=== PATIENT | male | born 1995 | race Caucasian/White ===

== ENCOUNTER 2018-04-05 19:16 | Emergency (ER) | payer OTHER ==
--- NOTE | 2018-04-05 20:25 | EDM.PDOC ---
ED HPI GENERAL MEDICAL PROBLEM - General Chief Complaint: ENT Problem Stated Complaint: SORE THROAT, RIGHT EAR PAIN Time Seen by Provider: 04/05/18 20:05 Source of Information: Reports: Patient History Limitations: Reports: No Limitations - History of Present Illness INITIAL COMMENTS - FREE TEXT/NARRATIVE: 22-year-old male with a sore throat for the past 3 or 4 days, has developed right ear pain today. Slight cough. No fever. Onset: Gradual Severity: Mild Right Ear Pain Score (Numeric/FACES): 4 Throat Pain Score (Numeric/FACES): 6 - Related Data Allergies Allergy/AdvReac Type Severity Reaction Status Date / Time azithromycin Allergy Diarrhea Verified 04/05/18 20:35 Home Meds: Home Meds NK [No Known Home Meds] 04/05/18 [History] Past Medical History - Infectious Disease History Infectious Disease History: Reports: Chicken Pox - Past Surgical History HEENT Surgical History: Reports: Myringotomy w Tube(s) Social & Family History - Family History Family Medical History: Noncontributory - Tobacco Use Smoking Status *Q: Never Smoker - Caffeine Use Caffeine Use: Reports: Coffee - Recreational Drug Use Recreational Drug Use: Yes Recreational Drug Type: Reports: Marijuana/Hashish ED ROS ENT - Review of Systems Review Of Systems: See Below Constitutional: Denies: Fever Respiratory: Reports: Cough Cardiovascular: Denies: Chest Pain GI/Abdominal: Denies: Abdominal Pain, Nausea, Vomiting Skin: Denies: Rash Neurological: Denies: Headache ED EXAM, ENT - Physical Exam Exam: See Below Exam Limited By: No Limitations General Appearance: Alert, No Apparent Distress Ears: Cerumen Impaction Mouth/Throat: Pharyngeal Erythema Head: Atraumatic Respiratory/Chest: No Respiratory Distress, Lungs Clear Skin: Warm, Dry Course - Vital Signs Last Recorded V/S: Last Vital Signs Temp 97.5 F 04/05/18 19:46 Pulse 62 04/05/18 19:46 Resp 18 04/05/18 19:46 BP 133/94 H 04/05/18 19:46 Pulse Ox 95 04/05/18 19:46 - Re-Assessments/Exams Free Text/Narrative Re-Assessment/Exam: 04/05/18 20:23 Patient likely has a viral pharyngitis but may have developed a right otitis media. Cerumen limits the visibility of the TM, and there is no time for irrigation as the emergency room is extremely busy. He'll be placed on amoxicillin 500 3 times a day and if not improving in a few days can be rechecked. He does have an ear analytical statistician at home, I recommended he use it over the next day or 2 to clear his ears. Departure - Departure Time of Disposition: 20:35 Disposition: Home, Self-Care 01 Condition: Good Clinical Impression: Otitis media Qualifiers: Otitis media type: unspecified Chronicity: acute Qualified Code(s): H66.90 - Otitis media, unspecified, unspecified ear - Discharge Information Instructions: Otitis Media, Adult, [id number] Referrals: PCP,None [Primary Care Provider] - Forms: ED Department Discharge Care Plan Goals: Take antibiotic as prescribed, and finish if improving after 1-2 days. Recheck in 3-4 days if not improving satisfactorily or return sooner if worsening. Ibuprofen will help with pain, irrigated ears when able.
== END 2018-04-05 20:36 | disposition home or self-care (01) ==
LOC: JP.ED 19:16
DX: H66.90 Otitis media, unspecified, unspecified ear (principal); Z88.1 Allergy status to other antibiotic agents
CPT/HCPCS: 99283